=== PATIENT | male | born 1945 | race African-American/Black ===

== ENCOUNTER 2016-10-02 03:33 | Inpatient (IN) | payer OTHER ==
[~2016-10-02] VITALS: Ht 182.9 cm; Wt 96.6 kg
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
--- NOTE | ~2016-10-02 | H ---
[facility] [place] [address] HISTORY AND PHYSICAL Name: ROBERTO VILLARREAL Room #: 423-1 [facility] IN ..#: [id number] Admission: 10/02/16 Attend Phys: Marcel Navarro DO Discharge: 10/06/16 Date of : 49 Report #: [id number] THIS REPORT FOR: //name// CC: CHRISTA physician/PCP Ministerio Guerrero NO PCP REASON FOR PRESENTATION: Abdominal pain. HISTORY OF PRESENT ILLNESS: The patient is a 71-year-old with past medical history of diabetes mellitus and hypertension. He is maintained on Glucophage and some other blood pressure medication that he does not recall. He presented complaining of right upper quadrant abdominal pain that woke him from sleep. This was described as crampy abdominal pain. He reported a similar episode few years ago when he had pancreatitis to some medications that he took a while ago. He follows with at the [facility] for all his medical needs. Pain was associated with nausea. No fever or chills. No vomiting. No relieving or alleviating factors. He continues to have significant pain while in the hospital. He was found to have distended gallbladder. No evidence of cholecystitis. PAST MEDICAL HISTORY: 1. Diabetes mellitus. 2. Hypertension. 3. Insomnia. 4. Injury related to his ambulatory service. MEDICATIONS: 1. Omeprazole. 2. Metformin. 3. Amitriptyline. 4. Quetiapine. 5. Some other blood pressure medication that he does not recall. ALLERGIES: No known drug allergies. SOCIAL HISTORY: No drug or alcohol abuse. He used to work for the [employer]. REVIEW OF SYSTEMS: CONSTITUTIONAL: Significant for decreased appetite, but no weight loss. PULMONARY: No cough or hemoptysis. CARDIOVASCULAR: No chest pain or palpitation. GASTROINTESTINAL: Significant for nausea, abdominal pain. No hematochezia or melena. No diarrhea. SKIN: No rash or ulcerations. NEUROLOGICAL: No headache. No numbness. [facility] [address] [place] [address] HISTORY AND PHYSICAL Name: ROBERTO VILLARREAL Room #: 423-1 [facility]#: [id number] Admission: 10/02/16 Attend Phys: Marcel Navarro DO Discharge: 10/06/16 Date of : 49 Report #: [id number] FAMILY HISTORY: His father of breast cancer. His mother used to live with solitary kidney. PHYSICAL EXAMINATION: GENERAL: He is alert, oriented, no apparent distress. VITAL SIGNS: Blood pressure is elevated, marginal at 160/89, however, . Temperature 36.9. Pulse rate 90. HEAD AND NECK: No jugular venous distention, no bruit, no thyromegaly. CHEST: Clear to auscultation bilaterally. CARDIOVASCULAR: Regular with no rub detected. ABDOMEN: Extremely tender, right upper quadrant with positive Dolan sign. LOWER EXTREMITIES: No edema. LABORATORY VALUES: Reviewed. White blood cell count was 7.9, hemoglobin was 12.7, sodium 140, potassium 3.8. Blood sugar mildly elevated at 109. Lactic acid 104. IMAGES: Reviewed. Distended gallbladder. ASSESSMENT, IMPRESSION AND PLAN: 1. Abdominal pain of unknown source. 2. Diabetes mellitus. 3. Hypertension. 4. NPO. 5. IV fluid. 6. Pain control. 7. Ultrasound of the abdomen, possible biliary scan. 8. Surgical consultation. 9. GI consultation. 10. We will keep off metformin for now given the fact that he will be n.p.o. 11. I asked him to bring all of his blood pressure medications. We will resume those when appropriate. 12. Accu-Cheks. 13. Sliding scale insulin. 14. PPI. 15. Further management will be dictated by the ultrasound finding, surgical recommendations along with the GI including biliary scan, plus minus EGD. <ELECTRONICALLY SIGNED> By: Karma Jernigan MD 10/10/16 1511 1246 1442 Karma Jernigan MD /nt
--- NOTE | ~2016-10-02 | O ---
[facility] [place] [address] OPERATIVE REPORT Name: ROBERTO VILLARREAL Room #: 423-1 [facility] IN ..#: [id number] Admission: 10/02/16 Attend Phys: Marcel Navarro DO Discharge: 10/06/16 Date of : 49 Report #: [id number] THIS REPORT FOR: //name// CC: CHRISTA physician/PCP Marcel SANDRA PCP DATE OF SERVICE: 10/04/2016 PREOPERATIVE DIAGNOSIS: Acute cholecystitis. POSTOPERATIVE DIAGNOSIS: Necrotic acute cholecystitis. SURGEON: Holger Yin M.D. CREW LEADER/CONTROL ROOM OPERATOR: Henry Vigil MD and Yamileth Plaza, Medical Student. OPERATIONS PERFORMED: 1. Laparoscopic cholecystectomy, modifier 22 secondary to significant intra-abdominal adipose stores with resultant difficult visualization of the gallbladder fossa, necrotic gallbladder with intense surrounding inflammatory response. 2. Laparoscopic primary repair of incarcerated ventral incisional hernia containing preperitoneal fat. ANESTHESIA: General endotracheal anesthesia. ESTIMATED BLOOD LOSS: 200 mL. SPECIMENS TO PATHOLOGY: Gallbladder and contents, purulent bile aspirated from gallbladder, greater than 100 mL and passed for gram stain culture, cytology analysis. DRAINS PLACED: A 19-Chinese Colton drain per the right upper quadrant to bulb suction. INDICATION FOR PROCEDURE: The patient is a very pleasant 71-year-old male patient who was recently admitted to [facility] with upper abdominal pain. He had been treated with antibiotic therapy and workup including CT scan, ultrasound and nuclear hepatobiliary scan had been obtained, which demonstrated acute cholecystitis. This had not been obvious upon his imaging upon initial intake in the hospital, but ultimately, this diagnosis was made. General surgery was consulted for potential surgical intervention. Detailed discussion of the risks and benefits of cholecystectomy was held with the patient including bleeding, pain, infection, postoperative abscess, need for future procedure and possible damage to surrounding structures [address] [address] OPERATIVE REPORT Name: ROBERTO VILLARREAL Room #: 423-1 [facility]#: [id number] Admission: 10/02/16 Attend Phys: Marcel Navarro DO Discharge: 10/06/16 Date of : 47 Report #: [id number] including colon, small bowel, common bile duct, stomach and other unforeseen potential complications were all discussed and all questions were answered to the patient's satisfaction. Written informed consent was obtained. DESCRIPTION OF PROCEDURE: The patient was brought to the operating room and placed in a supine position. Timeout was taken to verify the patient's identity and to plan the procedure. SCDs were in place on the lower extremities bilaterally. Preoperative antibiotics were administered. Anesthesia was induced. The patient was intubated. Abdomen was sterilely prepped and draped in standard fashion. Local anesthetic was infiltrated in the right upper quadrant and a 5 mm incision was made. A 5 mm 0-degree laparoscope was utilized with Visiport technique entry using a transparent 5 mm port. Pneumoperitoneum was created successfully and inspection of the viscera showed that no injury had occurred upon entry. A 12-mm port was placed at the level of the umbilicus. It was noted that there was an umbilical hernia containing preperitoneal fat had at the site of the umbilicus that had been a previous incision from a trauma operation many years ago. The port was placed at a site separate from that hernia. A 5 mm subxiphoid port and a 5 mm right lateral port were placed under direct visualization after local anesthetic had been infiltrated. The patient was placed in the Trendelenburg, right side up position. Visualization was notably quite difficult as the colon and small bowel were distended. There was an increased amount of intra-abdominal fat in the omentum and mesentery causing a relative obstruction of view of the right upper quadrant structures. Reverse Trendelenburg position was maximized and careful dissection of the gallbladder commenced. Initially, the gallbladder was unable to be grasped with laparoscopic instruments as it was distended and necrotic; therefore, an 18 gauge aspirating needle with syringe was brought in through one of the 5 mm ports and gallbladder was punctured. Purulent bile was aspirated approximately 105 mL. This was passed off for culture, gram stain as well as cytology analysis. The fluid was noted to be quite malodorous and necrotic. Gallbladder was then able to be grasped and this was retracted superolaterally. Dissection down to the infundibulum was carefully performed by taking down the adhesive attachments of omentum and peritoneum up around this region using suction irrigated device for part of the dissection as well as with [place] dissector. Ultimately, the cystic duct was identified and this was noted to be quite short. Therefore, cholangiogram was not performed. The cystic duct and cystic artery were carefully identified and critical view of safety was obtained. Cystic duct was clipped with a 3 down 1 up configuration. Cystic artery was clipped with a 2 down 1 up configuration. These were then transected using laparoscopic scissor. Gallbladder was then resected from the fossa using electrocautery and Sonicision energy device. There was a fair amount of oozing from the liver bed consistent with the degree of intense inflammation from the necrotic cholecystitis that had been identified. The gallbladder was placed into an EndoCatch bag and this was removed from the 12 mm port site. Further inspection of the gallbladder fossa showed several other sites of oozing and this was controlled using electrocautery. Irrigation of sterile saline was passed into [facility] [address] OPERATIVE REPORT Name: ROBERTO VILLARREAL Room #: 423-1 [facility] IN M.R.#: [id number] Admission: 10/02/16 Attend Phys: Marcel Navarro DO Discharge: 10/06/16 Date of : 47 Report #: [id number] the infrahepatic space and suctioned clear. Hemostasis was again carefully verified and Surgicel was packed into the fossa. Attention was then turned to the incisional hernia at the level of the umbilicus and this was repaired using 2 qazdvi-[id number] 0 PDS sutures. The gallbladder fossa was again examined and was noted to be hemostatic. A 19-Chinese Colton drain was brought into the field and placed in the infrahepatic space. This was brought out through the right lateral port site and secured to the skin using 2-0 nylon interrupted suture. The 12 mm port was then discontinued and this site was closed with a rovsec-wq-[id number] 0 PDS suture. Pneumoperitoneum was then carefully relieved and the 2 remaining 5 mm ports were removed. Local anesthetic was further infiltrated into each of the 3 remaining port sites as the fourth 5 mm port site was used as the exit for the Colton drain. Skin was closed at each of the 3 sites using 4-0 Monocryl subcuticular stitches and Dermabond was applied superficially at each of those sites. At this point, the case was ended, all instrumentation had been extracted and accounted for. All counts were correct according to the nursing report. The patient was then extubated and taken to the postoperative care unit in stable condition. <ELECTRONICALLY SIGNED> By: Holger Yin MD 10/12/16 1034 1407 1548 Holger Yin MD /nt
--- NOTE | ~2016-10-02 | D ---
[facility] [place] [address] DISCHARGE SUMMARY Name: ROBERTO VILLARREAL Room #: 423-1 ADM IN M.R.#: [id number] Admission: 10/02/16 Attend Phys: Marcel Navarro DO Discharge: Date of : 49 Report #: [id number] THIS REPORT FOR: //name// CC: CHRISTA physician/PCP Marcel SANDRA PCP DATE OF SERVICE: 10/06/2016 DISCHARGE CONDITION: Stable. DISCHARGE DISPOSITION: To home. DISCHARGE DIAGNOSIS: Necrotic cholecystitis with microbiology from bile growing Enterobacter cloacae and Klebsiella oxytoca. CONSULTATIONS WHILE INPATIENT: Dr. Holger Yin, General Surgery. PROCEDURES AND TESTS: Laparoscopic cholecystectomy and incarcerated ventral incisional hernia repair by Dr. Yin prior to discharge. PHYSICAL EXAMINATION: VITAL SIGNS: On day of discharge, the patient is afebrile, pulse 74, respiratory rate 18, O2 sat 95 on room air, blood pressure 153/82. GENERAL: Awake, alert, in no acute distress. HEENT: Unremarkable. NECK: No JVD, thyromegaly. HEART: S1, S2 present, regular bilaterally. ABDOMEN: Obese, soft. Scant bowel sounds. Mildly tender to palpation at surgical site. MARLO drain removed. NEUROLOGIC: Awake, alert. No focal findings. SKIN: Unremarkable. No rash or lesions. LABORATORIES AND INVESTIGATIONS: Noted for mild anemia, hemoglobin 9.9, otherwise unremarkable. BRIEF INPATIENT COURSE: The patient is a 71-year-old gentleman presenting with complaints of right upper quadrant abdominal pain. For details, refer to initial H and P note by Dr. Jernigan, subsequently was noted to have necrotic cholecystitis and underwent cholecystectomy. He will complete a course of antibiotics with Augmentin and we will also add ciprofloxacin based on sensitivity data and we will continue close outpatient followup with General Surgery. He is stable for discharge from a surgical standpoint and will accordingly be discharged to follow up with his primary physicians and his primary surgeon. His other medical conditions have remained stable. I have discussed his condition with him and spent greater than 30 minutes in the [address] [address] DISCHARGE SUMMARY Name: ROBERTO VILLARREAL Room #: 423-1 ADM IN .R.#: [id number] Admission: 10/02/16 Attend Phys: Marcel Navarro DO Discharge: Date of : 49 Report #: [id number] discharge process for this patient today. Please note summary alone. For full details of inpatient stay, please obtain the necessary records of lab tests, imaging studies, consult notes, progress notes, etc. By: 1302 1700 Nii Rodriguez MD /nt
--- NOTE | ~2016-10-02 | S ---
[facility] [place] [address] SURGICAL PATH RPT PROCEDURE Name: JEFFERY VILLARREAL Room #: 423-1 ADM IN M.R.#: [id number] Admission: 10/02/16 Date of : 49 Discharge: Report #: [id number] Path Case #: [id number] PATHOLOGY REPORT COLLECTION DATE: 10/04/2016 RECEIVED DATE: 10/04/2016 SUBMITTING PHYS: Dr. eHnry Vigil OTHER PHYS: Dr. Marcel Navarro SPECIMEN(S) RECEIVED: A.Gallbladder * * * * * * * * * * * * FINAL DIAGNOSIS: Gallbladder, cholecystectomy: - Marked acute cholecystitis with abscess formation, surface ulceration and gangrenous necrosis. - Negative for dysplasia or malignancy. - Incidental reactive and hemorrhagic lymph node. (IUV:csd; d/t: 10/06/2016) PATHOLOGIST: Miladis Schuler M.D. REPORT ELECTRONICALLY SIGNED BY: Miladis Schuler M.D. DATE/TIME: 10/06/2016 15:38 * * * * * * * * * * * * GROSS PATHOLOGY: Received in formalin labeled "Jeffery Villarreal and gallbladder," is a 9.8 x 4.0 x 4.0 cm, previously opened gallbladder with pink-hanson, diffusely hemorrhagic, and wrinkled, serosal surfaces with multiple adhesions. The gallbladder was previously opened to reveal pink-hanson and granular mucosa with focal white-hanson and plaque-like areas. The wall measures 0.5 cm in thickness. Calculi are not present and no masses are noted grossly. A 0.5 cm in greatest dimension pink-ahnson lymph node is present near the cystic duct. [employer] sections from the body and fundus are submitted along with the proximal margin and lymph node in cassette A1. (TTL; 10/05/2016) CLINICAL HISTORY: Cholecystitis INITIAL CPT CODE(S): A; 91155 Professional services performed by [facility] at [facility] [address] [place] [address] SURGICAL PATH RPT PROCEDURE Name: JEFFERY VILLARREAL Room #: 423-1 ADM IN ..#: [id number] Admission: 10/02/16 Date of : 49 Discharge: Report #: [id number] Path Case #: [id number] , [place] [address] Technical services performed by [employer] at [address] [place] [address], [facility] [address] [address]. [place] [address] PHONE: [phone] DIRECTOR: Esequiel Marcelo M.D. * * * END OF REPORT * * *
[~2016-10-02 03:33] MED LIST: AMITRIPTYLINE H50 M2 PO; GLUCOPHAGE500 MG PO; GLUCOTROL PO; OMEPRAZOLE20 M2 PO
[2016-10-02 03:35] VITALS: BP 167/81
[2016-10-02 04:14] LABS: BASOPHILS 0.6 % (0.0-2.0); HEMATOCRIT 38.6 % (42.0-52.0); HEMOGLOBIN 12.7 gm/dL (14.0-18.0); LYMPHOCYTES 20.8 % (24.0-44.0); MCH 27.7 pg (26.0-34.0); MCHC 32.8 g/dL (28.0-37.0); MCV 84.3 fL (80.0-100.0); MONOCYTES 11.1 % (1.0-8.0); PLATELET COUNT 240 thou/uL (150-400); POLYS 63.5 % (36.0-66.0); RBC 4.58 mil/uL (4.50-6.00); RDW 13.8 % (10.5-14.5); WBC 7.9 thou/uL (4.0-11.0)
[2016-10-02 04:17] LABS: MANUAL DIFF NO
[2016-10-02 04:20] LABS: ANION GAP 10 mmol/L (7-16); BUN 13 mg/dL (7-18); CALCIUM 8.9 mg/dL (8.5-10.1); CHLORIDE 104 mmol/L (98-107); CO2 26 mmol/L (21-32); CREATININE 1.2 mg/dL (0.6-1.3); GLUCOSE 109 mg/dL (70-99); POTASSIUM 3.8 mmol/L (3.5-5.1); SODIUM 140 mmol/L (136-145)
[2016-10-02 04:24] LABS: ALBUMIN 3.6 g/dL (3.4-5.0); ALKALINE PHOSPHATASE 90 U/L (46-116); DIRECT BILIRUBIN < 0.1 mg/dL (<0.1-0.3); SGOT 15 U/L (15-37); SGPT 25 U/L (30-65); TOTAL BILIRUBIN 0.2 mg/dL (<0.1-1.0); TOTAL PROTEIN 6.9 g/dL (6.4-8.2)
[2016-10-02 08:02] VITALS: BP 153/82
[2016-10-02 08:44] VITALS: BP 174/99
[2016-10-02 11:50] VITALS: BP 160/89
[2016-10-02 16:00] VITALS: BP 170/91
[2016-10-02 20:00] VITALS: BP 165/84
[2016-10-02] MEDS ORDERED: AMITRIPTYLINE H75 M1 PO (20:51)
[2016-10-02] MEDS ORDERED: APAP500 PO (21:03)
[2016-10-02] MEDS ORDERED: LUBRICANT 0.5-015 ML OPHTHALMIC (21:05)
[2016-10-02] MEDS ORDERED: DIPHENHIST50 MG PO (21:06)
[2016-10-02] MEDS ORDERED: IBUPROFEN 800800 M1 PO (21:08)
[2016-10-02] MEDS ORDERED: SEROQUEL 50 MG50 MG PO (21:10)
[2016-10-02] MEDS ORDERED: VIAGRA100 MG PO (21:14)
[2016-10-02] MEDS ORDERED: DENTA 5000 PLUS51 GM (21:16)
[2016-10-02] MEDS ORDERED: A AND D OINTM42.5 GM (21:17)
[2016-10-02] MEDS ORDERED: TERBINAFINE15 GM TOP (21:20)
[2016-10-02] MEDS ORDERED: ASPIR 8181 MG PO (21:21)
[2016-10-02] MEDS ORDERED: ATORVASTATIN CA40 MG PO (21:24)
[2016-10-02] MEDS ORDERED: ARTHRITIS PAI42.5 GM TOP (21:25)
[2016-10-02] MEDS ORDERED: VITAMIN D1000 UNI1 PO (21:26)
[2016-10-02] MEDS ORDERED: COLACE100 MG PO (21:27)
[2016-10-02] MEDS ORDERED: HYDROCHLOROTH12.5 M1 PO (21:28)
[2016-10-02] MEDS ORDERED: BASLE60 GM TOP (21:30)
[2016-10-02] MEDS ORDERED: LOPRESSOR25 PO (21:32)
[2016-10-02 23:09] LABS: URINE BILIRUBIN NEGATIVE (Negative); URINE BLOOD NEGATIVE (Negative); URINE COLOR YELLOW; URINE GLUCOSE-RANDOM* NEGATIVE (Negative); URINE KETONES 1+ (Negative); URINE LEUKOCYTES-REFLEX NEGATIVE (Negative); URINE PROTEIN (DIPSTICK) NEGATIVE (Negative); URINE SPECIFIC GRAVITY 1.015 (1.003-1.035)
[2016-10-03 04:32] VITALS: BP 115/60
[2016-10-03 07:58] VITALS: BP 147/83
[2016-10-03 15:56] VITALS: BP 155/87
[2016-10-03 20:00] VITALS: BP 137/59
[2016-10-04 04:00] VITALS: BP 144/78
[2016-10-04 07:30] VITALS: BP 149/68
[2016-10-04 08:45] LABS: HEMATOCRIT 32.1 % (42.0-52.0); MCH 27.4 pg (26.0-34.0); MCHC 32.7 g/dL (28.0-37.0); MCV 83.7 fL (80.0-100.0); PLATELET COUNT 175 thou/uL (150-400); RBC 3.84 mil/uL (4.50-6.00); RDW 13.6 % (10.5-14.5); WBC 11.4 thou/uL (4.0-11.0)
[2016-10-04 08:49] LABS: HEMOGLOBIN 10.5 gm/dL (14.0-18.0); MANUAL DIFF YES
[2016-10-04 08:55] LABS: CALCIUM 8.2 mg/dL (8.5-10.1); POTASSIUM 3.5 mmol/L (3.5-5.1)
[2016-10-04 09:00] LABS: ALBUMIN 2.7 g/dL (3.4-5.0); TOTAL BILIRUBIN 0.4 mg/dL (<0.1-1.0); TOTAL PROTEIN 6.2 g/dL (6.4-8.2)
[2016-10-04 09:16] LABS: ABSOLUTE NEUTROPHILS 8.3 thou/uL (1.4-8.2); PLATELET ESTIMATE NORMAL; TOTAL CELL COUNT 100
[2016-10-04 17:34] VITALS: BP 147/82
[2016-10-04 18:00] VITALS: BP 153/84
[2016-10-04 21:30] VITALS: BP 138/82
[2016-10-05 04:30] VITALS: BP 152/86
[2016-10-05 05:29] LABS: HEMATOCRIT 30.7 % (42.0-52.0); HEMOGLOBIN 10.1 gm/dL (14.0-18.0); MCH 27.9 pg (26.0-34.0); MCHC 32.8 g/dL (28.0-37.0); MCV 84.9 fL (80.0-100.0); PLATELET COUNT 185 thou/uL (150-400); RBC 3.61 mil/uL (4.50-6.00); RDW 13.8 % (10.5-14.5); WBC 10.8 thou/uL (4.0-11.0)
[2016-10-05 05:32] LABS: MANUAL DIFF YES
[2016-10-05 05:49] LABS: ALBUMIN 2.4 g/dL (3.4-5.0); CREATININE 1.1 mg/dL (0.7-1.3); MAGNESIUM 1.5 mg/dL (1.8-2.4); POTASSIUM 3.7 mmol/L (3.5-5.1); TOTAL BILIRUBIN 0.4 mg/dL (<0.1-1.0); TOTAL PROTEIN 6.4 g/dL (6.4-8.2)
[2016-10-05 07:00] LABS: ABSOLUTE NEUTROPHILS 9.3 thou/uL (1.4-8.2); TOTAL CELL COUNT 100
[2016-10-05 07:01] LABS: ANISOCYTOSIS SLIGHT; POLYCHROMASIA OCCASIONAL
[2016-10-05 07:32] VITALS: BP 135/80
[2016-10-05 12:30] VITALS: BP 100/61
[2016-10-05 16:10] VITALS: BP 122/80
[2016-10-05 20:00] VITALS: BP 142/83
[2016-10-06 04:00] VITALS: BP 144/87
[2016-10-06 07:33] VITALS: BP 153/82
[2016-10-06 07:50] LABS: ABSOLUTE NEUTROPHILS 6.3 thou/uL (1.4-8.2); BASOPHILS 0.5 % (0.0-2.0); EOSINOPHILS 3.6 % (0.0-3.0); HEMATOCRIT 29.9 % (42.0-52.0); HEMOGLOBIN 9.9 gm/dL (14.0-18.0); LYMPHOCYTES 10.1 % (24.0-44.0); MCH 28.1 pg (26.0-34.0); MCHC 33.2 g/dL (28.0-37.0); MCV 84.5 fL (80.0-100.0); MONOCYTES 11.8 % (1.0-8.0); PLATELET COUNT 226 thou/uL (150-400); RBC 3.53 mil/uL (4.50-6.00); WBC 8.5 thou/uL (4.0-11.0)
[2016-10-06 07:52] LABS: MANUAL DIFF NO
[2016-10-06 08:04] LABS: ALBUMIN 2.4 g/dL (3.4-5.0); CREATININE 1.2 mg/dL (0.7-1.3); POTASSIUM 3.9 mmol/L (3.5-5.1); TOTAL BILIRUBIN 0.2 mg/dL (<0.1-1.0); TOTAL PROTEIN 6.3 g/dL (6.4-8.2)
[2016-10-06] MEDS ORDERED: SENNA8.6 MG PO (08:24)
[2016-10-06] MEDS ORDERED: CIPRO500 MG PO (12:53)
[2016-10-06] MEDS ORDERED: HYDROCODONE-AP1 EAC6 PO (12:53)
[2016-10-06] MEDS ORDERED: AUGMENTIN 875875 MG PO (12:53)
[2016-10-06 15:17] VITALS: BP 153/82
[2016-10-06 15:54] VITALS: BP 153/82
== END 2016-10-06 17:15 | disposition home health service (06) | DRG 354 ==
LOC: ER 03:33 → EROBS 06:22 → 4E 06:22
PROVIDERS: Emergency Medicine; Hospitalist; Otolaryngology; Surgery
PROC: 0FT44ZZ Resection of Gallbladder, Percutaneous Endoscopic Approach (ICD-10-PCS; principal; 2016-10-04)
PROC: 0WQF4ZZ Repair Abdominal Wall, Percutaneous Endoscopic Approach (ICD-10-PCS; principal; 2016-10-04)
PROC: BF121ZZ Fluoroscopy of Gallbladder using Low Osmolar Contrast (ICD-10-PCS; principal; 2016-10-04)
DX: K43.0 Incisional hernia with obstruction, without gangrene (principal); K81.0 Acute cholecystitis; I10 Essential (primary) hypertension; K59.00 Constipation, unspecified; F43.10 Post-traumatic stress disorder, unspecified; E11.9 Type 2 diabetes mellitus without complications; K21.9 Gastro-esophageal reflux disease without esophagitis; Z87.828 Personal history of other (healed) physical injury and trauma; Z80.8 Family history of malignant neoplasm of other organs or systems; Z84.2 Family history of other diseases of the genitourinary system
CPT/HCPCS: 10084; 27001; 50010; 50101; 50249; 50331; 50555; 50886; 50900; 50944; 50962; 51297; 51489; 51975; 52265; 52266; 52287; 54022; 54118; 55245; 55317; 56462; 56525; 56526; 56970; 62110; 62900; 70005